=== PATIENT | male | born 2000 | race Asian ===

== ENCOUNTER 2018-04-07 12:29 | Emergency (ER) | payer OTHER ==
--- NOTE | 2018-04-07 13:10 | EDPHY ---
H & P Stated Complaint: Ingrown hair Time Seen by Provider: 04/07/18 13:10 - Personal History Current Tetanus/Diphtheria Vaccine: Yes - Medical/Surgical History Hx Asthma: No Hx Chronic Respiratory Disease: No Hx Diabetes: No Hx Cardiac Disease: No Hx Renal Disease: No Hx Cirrhosis: No Hx Alcoholism: No Other PMH: Denies - Social History Smoking Status: Never smoked Constitutional: Initial Vital Signs Temperature (C) 36.7 C 04/07/18 12:31 Heart Rate 88 04/07/18 12:31 Respiratory Rate 18 04/07/18 12:31 Blood Pressure 128/73 H 04/07/18 12:31 O2 Sat (%) 95 04/07/18 12:31 O2 Delivery Mode Room Air Allergies/Adverse Reactions: No Known Allergies Allergy (Unverified 04/07/18 12:34) Home Medications: Medication Instructions Recorded NK [No Known Home Meds] 04/07/18 Medical Decision Making ED Course/Re-evaluation: CHIEF COMPLAINT: "I believe I have an ingrown hair" HISTORY OF PRESENT ILLNESS: The patient is a 17 y/o male complaining of a possible ingrown hair near his rectum. He has pain at the location. He's never had an issue like this previously. No fever, abdominal pain, other complaints. He is typically healthy. REVIEW OF SYSTEMS: A comprehensive 10 system review of systems is otherwise negative aside from elements mentioned in the history of present illness and medical decision making. PHYSICAL EXAM: HR, BP, O2 Sat, RR. Temp noted General Appearance: Alert, well hydrated, appropriate, and non-toxic appearing. Head: Atraumatic without scalp tenderness or obvious injury Eyes: Pupils equal, round, reactive to light and accommodation, EOMI, no trauma , no injection. Nose: Atraumatic, no rhinorrhea, clear. Throat: Mucus membranes moist. Neck: Supple, nontender, no lymphadenopathy. Respiratory: No retractions, no distress, no wheezes, and no accessory muscle use. Lungs are clear to auscultation bilaterally. Cardiovascular: Regular rate and rhythm, no murmurs, rubs, or gallops. Good capillary refill all extremities. Gastrointestinal: Abdomen is soft, nontender, non-distended, no masses, no rebound, no guarding, no peritoneal signs. Rectal: [place]-sized deep perirectal abscess on right side. Musculoskeletal: Normal active ROM of all extremities, atraumatic. Neurological: Alert, appropriate, and interactive. The patient has non-focal cranial nerves, motor, sensory, and cerebellar exam. Skin: No rashes, good turgor, no nodules on palpation. Past medical history: Denies Past surgical history: Denies Family history: Noncontributory Social history: From [facility], [employer] student. Nonsmoker. DIFFERENTIAL DIAGNOSIS: The differential diagnosis for the patient's symptoms included but was not limited to perirectal abscess, internal hemorrhoid, external hemorrhoid, and sepsis. MEDICAL DECISION MAKING: This is a 17 y/o male who presents with a deep perirectal abscess. This will require surgical consultation. IV, labs, and 1gm IV Cefoxitin ordered. 1317: Consulted with Dr. Menezes, surgeon. He will evaluate patient. Departure - Departure Clinical Impression: Perirectal abscess Condition: Fair Referrals: NONE *PRIMARY CARE P,. [Primary Care Provider] - As per Instructions Report Scribed for: Kiran Singh Report Scribed by: Jazmin Bird Date of Report: 04/07/18 Time of Report: 13:18
[2018-04-07] MEDS ORDERED: cefOXitin SODIUM 1 GM in NS 50 ML IV ONE (13:15)
[2018-04-07] MEDS ORDERED: NS 1,000 ML IV ONE (13:18)
[2018-04-07 13:46] LABS: PLATELET COUNT 319 10^3/uL (150-400)
[2018-04-07 13:55] LABS: INR 1.09 (0.83-1.16); PROTIME(PATIENT) 14.3 SEC (12.0-15.0)
--- NOTE | 2018-04-07 14:06 | PDGENHP ---
History and Physical - Chief Complaint layla-rectal pain - History of Present Illness 17 y/o male with one day history of layla-rectal pain and swelling seen in the ED by Dr. Singh who diagnosed a layla-rectal abscess and surgical consult was requested. History Information - Allergies/Home Medication List Allergies/Adverse Reactions: No Known Allergies Allergy (Unverified 04/07/18 12:34) Home Medications: NK [No Known Home Meds] 04/07/18 [Last Taken Unknown] I have personally reviewed and updated: family history, medical history, social history, surgical history - Past Medical History no pertinent PMH Additional medical history: acne. 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 family is in [facility] Review of Systems Review of Systems: Gastrointestinal: Reports: constipation (occasional) Physical Exam Physical Exam: Temp Pulse Resp BP Pulse Ox 36.7 C 94 16 148/95 H 99 04/07/18 13:52 04/07/18 13:52 04/07/18 13:52 04/07/18 13:52 04/07/18 13:52 Constitutional: no apparent distress Cardiovascular: regular rate and rhythym, no murmur, rub, or gallop Respiratory: no respiratory distress, no rales or rhonchi, clear to auscultation Gastrointestinal: other (rectal: left anterolateral abscess with minimal fluctuance, internal exam not repeated) Skin: warm Neurologic: AAOx3 Psychiatric: interacting appropriately, not anxious Lymph, Heme, Immunologic: no cervical LAD Lab Data & Imaging Review 04/07/18 13:28 04/07/18 13:28 WBC 6.75 10^3/uL (3.80-9.50) 04/07/18 13:28 RBC 5.27 10^6/uL (4.40-6.38) 04/07/18 13:28 Hgb 15.5 g/dL (13.7-17.5) 04/07/18 13:28 POC Hgb 16.3 gm/dL (13.7-17.5) 04/07/18 13:35 Hct 46.0 % (40.0-51.0) 04/07/18 13:28 POC Hct 48 % (40-51) 04/07/18 13:35 MCV 87.3 fL (81.5-99.8) 04/07/18 13:28 MCH 29.4 pg (27.9-34.1) 04/07/18 13:28 MCHC 33.7 g/dL (32.4-36.7) 04/07/18 13:28 RDW 13.2 % (11.5-15.2) 04/07/18 13:28 Plt Count 319 10^3/uL (150-400) 04/07/18 13:28 MPV 9.3 fL (8.7-11.7) 04/07/18 13:28 Neut % (Auto) 65.2 % (39.3-74.2) 04/07/18 13: Lymph % (Auto) 20.9 % (15.0-45.0) 04/07/18 13:28 [place] % (Auto) 11.0 % (4.5-13.0) 04/07/18 13:28 Eos % (Auto) 2.2 % (0.6-7.6) 04/07/18 13: Baso % (Auto) 0.4 % (0.3-1.7) 04/07/18 13: Nucleat RBC Rel Count 0.0 % (0.0-0.2) 04/07/18 13:28 Absolute Neuts (auto) 4.40 10^3/uL (1.70-6.50) 04/07/18 13:28 Absolute Lymphs (auto) 1.41 10^3/uL (1.00-3.00) 04/07/18 13:28 Absolute Monos (auto) 0.74 10^3/uL (0.30-0.80) 04/07/18 13:28 Absolute Eos (auto) 0.15 10^3/uL (0.03-0.40) 04/07/18 13: Absolute Basos (auto) 0.03 10^3/uL (0.02-0.10) 04/07/18 13:28 Absolute Nucleated RBC 0.00 10^3/uL (0-0.01) 04/07/18 13:28 Immature Gran % 0.3 % (0.0-1.1) 04/07/18 13:28 Immature Gran # 0.02 10^3/uL (0.00-0.10) 04/07/18 13:28 PT 14.3 SEC (12.0-15.0) 04/07/18 13:28 INR 1.09 (0.83-1.16) 04/07/18 13:28 APTT 30.8 SEC (23.0-38.0) 04/07/18 13:28 POC Sodium 141 mEq/L (135-145) 04/07/18 13:35 Sodium 137 mEq/L (135-145) 04/07/18 13:28 POC Potassium 4.1 mEq/L (3.3-5.0) 04/07/18 13:35 Potassium 4.4 mEq/L (3.5-5.2) 04/07/18 13:28 POC Chloride 104 mEq/L (97-110) 04/07/18 13:35 Chloride 105 mEq/L (97-110) 04/07/18 13:28 Carbon Dioxide 25 mEq/l (22-31) 04/07/18 13:28 POC Total CO2 26 mEq/L (22-31) 04/07/18 13:35 Anion Gap 7 mEq/L (6-14) 04/07/18 13:28 POC BUN 8 mg/dL (7-23) 04/07/18 13:35 BUN 10 mg/dL (7-23) 04/07/18 13:28 Creatinine 0.9 mg/dL (0.7-1.3) 04/07/18 13:28 POC Creatinine 0.9 mg/dL (0.7-1.3) 04/07/18 13:35 Estimated GFR > 60 04/07/18 13:28 Glucose 93 mg/dL (70-100) 04/07/18 13:28 POC Glucose 95 mg/dL (70-100) 04/07/18 13:35 Calcium 9.7 mg/dL (8.5-10.4) 04/07/18 13:28 Assessment & Plan Assessment: Perirectal abscess (Acute) Plan: I recommended incision and drainage under anesthesia We discussed the pathophysiology of layla-rectal abscess formation and possibility of fistula formation Informed consent was obtained.
[2018-04-07] MEDS ORDERED: LR 1,000 ML IV ONE (14:20)
[2018-04-07] MEDS ORDERED: LR 1,000 ML IV SCH (14:30)
[2018-04-07] MEDS ORDERED: BUPIVACAINE 0.25% 30 ML SDV ONE (14:53)
[2018-04-07] MEDS ORDERED: EPINEPHrine 1 MG/ML INJ ONE (14:53)
[2018-04-07] MEDS ORDERED: MIDAZOLAM 2 MG/2 ML VIAL IVP ONE (14:53)
--- NOTE | 2018-04-07 14:53 | PDANEPAE ---
ANE History of Present Illness perirectal abscess ANE Past Medical History - Cardiovascular History Hx Hypertension: No Hx Arrhythmias: No Hx Chest Pain: No Hx Coronary Artery / Peripheral Vascular Disease: No Hx CHF / Valvular Disease: No Hx Palpitations: No - Pulmonary History Hx COPD: No Hx Asthma/Reactive Airway Disease: No Hx Recent Upper Respiratory Infection: No Hx Oxygen in Use at Home: No Hx Sleep Apnea: No - Endocrine History Hx Diabetes: No Hypothyroid: No Hyperthyroid: No Obesity: yes, mild ANE Review of Systems Review of systems is: negative Review of Systems: - Exercise capacity Exercise capacity: >=4 METS ANE Patient History - Allergies Allergies/Adverse Reactions: No Known Allergies Allergy (Verified 04/07/18 14:15) - Home Medications Home medications: home medication list seen and reviewed Home Medications: NK [No Known Home Meds] 04/07/18 [Last Taken Unknown] - NPO status NPO Since - Liquids (Date): 04/07/18 NPO Since - Liquids (Time): 12:00 NPO Since - Solids (Date): 04/06/18 NPO Since - Solids (Time): 20:00 - Anes Hx Anes Hx: no prior problems - Smoking Hx Smoking Status: Never smoked - Alcohol Use Alcohol Use: None - Family Anes Hx Family Anes Hx: none ANE Labs/Vital Signs - Labs Result Diagrams: 04/07/18 13:28 04/07/18 13:28 - Vital Signs Blood Pressure: 144/90 Heart Rate: 94 Respiratory Rate: 16 O2 Sat (%): 98 Height: 182 cm Weight: 115 kg ANE Physical Exam - Airway Neck exam: FROM Mallampati Score: Class 2 Mouth exam: normal dental/mouth exam - Pulmonary Pulmonary: no respiratory distress, clear to auscultation - Cardiovascular Cardiovascular: regular rate and rhythym, no murmur, rub, or gallop - ASA Status ASA Status: I ANE Anesthesia Plan Anesthesia Plan: GA w LMA
[2018-04-07] MEDS ORDERED: fentaNYL 100 MCG/2 ML INJ ONE (14:56)
[2018-04-07] MEDS ORDERED: PROPOFOL/EMULSION 500 MG/50 ML BOTTLE IV ONE (14:56)
[2018-04-07] MEDS ORDERED: LIDOCAINE 2% 5 ML SDV ONE (14:58)
[2018-04-07] MEDS ORDERED: GLYCOPYRROLATE 0.2 MG/1 ML VIAL ONE (15:03)
[2018-04-07] MEDS ORDERED: ePHEDrine SULFATE 25 MG/5 ML SYR ONE (15:22)
[2018-04-07] MEDS ORDERED: fentaNYL 100 MCG/2 ML INJ IVP PRN (15:36)
[2018-04-07] MEDS ORDERED: PROMETHAZINE HCL 25 MG/ML INJ IVP PRN (15:36)
[2018-04-07] MEDS ORDERED: NALOXONE HCL 0.4 MG/ML INJ IVP PRN (15:36)
--- NOTE | 2018-04-07 15:36 | POSTANESTH ---
Post Anesthetic Evaluation Cardiovascular Status: Normal, Stable Respiratory Status: Normal, Stable Level of Consciousness/Mental Status: Can Participate in Eval Pain Control: Adequate, Prn Tx Ordered Nausea/Vomiting Control: Adequate, Prn Tx Ordered Complications Possibly Related to Anesthesia: None Noted
[2018-04-07] MEDS ORDERED: DEXAMETHASONE 4 MG/ML VIAL ONE (15:37)
[2018-04-07] MEDS ORDERED: ONDANSETRON 4 MG/2 ML VIAL ONE (15:37)
[2018-04-07] MEDS ORDERED: KETOROLAC 30 MG/1 ML SDV ONE (15:37)
[2018-04-07] MEDS ORDERED: HYDROCODONE/APAP 5/325 TAB PO PRN (16:00)
--- NOTE | 2018-04-07 16:00 | POSTOPPROG ---
Post Op Note Date of Operation: 04/07/18 Surgeon: Andrea Menezes Mold Builder: Mery Small PAS-III Anesthesiologist: Leyla Ruby MD Anesthesia: LMA Pre-op Diagnosis: layla-rectal abscess Post-op Diagnosis: same Procedure: EUA/incision and drainage layla-rectal abscess Findings: left anterolateral layla-rectal abscess Inf/Abcess present in the surg proc area at time of surgery?: Yes Depth: Deep Incisional (Fascial) Complications: none
[2018-04-07] MEDS ORDERED: IBUPROFEN 600 MG TAB PO PRN (16:03)
[2018-04-07 17:41] VITALS: BP 142/105
[2018-04-07] MEDS ORDERED: AMOXICILLIN/CLAVULANATE POT 875/125 MG TAB PO SCH ×2 (21:00)
--- NOTE | 2018-04-08 06:33 | GOP ---
[f rep st] OPERATIVE REPORT DATE OF OPERATION: 04/07/2018 SURGEON: Andrea Menezes MD, FACS [employer] OPERATOR FOR METAL: CECILIA Etienne-3 ANESTHESIOLOGIST: Coco Ruby MD PREOPERATIVE DIAGNOSIS: Perirectal abscess, left anterolateral. POSTOPERATIVE DIAGNOSIS: Perirectal abscess, left anterolateral. PROCEDURE PERFORMED: 1. Exam under anesthesia. 2. Incision and drainage of perirectal abscess. FINDINGS: Left anterolateral perirectal abscess. ESTIMATED BLOOD LOSS: Estimated blood loss was 10 cc. DESCRIPTION OF PROCEDURE: After informed consent was obtained, the patient was brought to the operating room and placed under general anesthesia. He was carefully positioned in lithotomy with padded stirrups, taking care to protect all pressure points. The perineum was prepped and draped in usual fashion. Before proceeding, a time-out and identification of the patient was performed. The patient had, in the right anterolateral ischiorectal fossa an area of induration and fluctuance. Digital rectal exam was performed and revealed that this was in the ischiorectal fossa and did not extend into the rectal wall. The area overlying the abscess, which measured approximately 3 cm in diameter, was infiltrated with 0.25% Marcaine plain. A radial incision was made, entering the abscess cavity lateral to the sphincter mechanism, and pus under pressure was evacuated. The cavity was broken up with curved hemostats and irrigated copiously with normal saline, and no loculations were left upon completion. The abscess was packed with 0.5 inch NuGauze and direct pressure applied for hemostasis. Sterile dressings were placed. Patient was returned extubated to the recovery room in satisfactory condition. Needle, sponge, and instrument count were correct. COMPLICATIONS: None. /[id number]/MODL MTDD
== END 2018-04-07 14:23 | disposition still patient (30) ==
LOC: UNDOADMOB 13:48 → UNDODISOB 17:41
DX: K61.1 Rectal abscess (principal)
CPT/HCPCS: 82435-PO; 82565-PO; 82947-PO; 84132-PO; 84295-PO; 84520-PO; 85014-ER; J0171; J0694; J1100; J1885; J2250; J2405; J2704; J3010

== ENCOUNTER 2018-08-12 20:35 | Emergency (ER) | payer OTHER | END 2018-08-12 21:48 | disposition home or self-care (01) ==